=== PATIENT | female | born 1975 | race Caucasian/White ===

== ENCOUNTER 2024-09-24 00:06 | Emergency (ER) | payer OTHER ==
[~2024-09-24] VITALS: Ht 167.6 cm; Wt 89.0 kg
[2024-09-24 00:38] LABS: BASOPHILS % 0.4 % (0.0-2.0); DIFFERENTIAL COMMENT 0; EOSINOPHILS % 0.2 % (0.0-5.0); HEMOGLOBIN. 9.6 g/dL (12.0-16.0); LYMPHOCYTES % 9.7 % (20.0-50.0); MEAN CORPUSCULAR HEMOGLOBIN 22.3 pg (28.0-32.0); MEAN CORPUSCULAR HGB CONC 31.1 g/dL (31.0-37.0); MEAN CORPUSCULAR VOLUME 71.6 fL (81.0-99.0); MEAN PLATELET VOLUME 8.1 fl (7.4-10.4); MONOCYTES % 8.7 % (2.0-8.0); PLATELET 329 x1000/uL (130-400); RED BLOOD CELL COUNT 4.32 mill/uL (4.2-5.4); RED CELL DISTRIBUTION WIDTH 20.9 % (11.6-14.6); WHITE BLOOD COUNT 7.5 x1000/uL (4.5-11.0)
[2024-09-24 00:43] LABS: CHLORIDE 101 mEq/L (98-107); POTASSIUM 4.1 mEq/L (3.5-5.1); SODIUM 135 mEq/L (136-145)
[2024-09-24 00:44] LABS: CALCIUM 9.3 mg/dL (8.7-10.4); CARBON DIOXIDE 26 mEq/L (21-32)
[2024-09-24 00:49] LABS: CREATININE 0.8 mg/dL (0.6-1.0); GLUCOSE 131 mg/dL (70-105); UREA NITROGEN BLOOD 12 mg/dL (9-23)
[2024-09-24 01:06] VITALS: O2SAT 99
[2024-09-24 01:12] LABS: ALANINE AMINOTRANSFERASE 16 IU/L (10-49); ALBUMIN 4.7 g/dL (3.2-4.8); ASPARTATE AMINOTRANSFERASE 21 IU/L (<34)
[2024-09-24 01:13] LABS: BILIRUBIN TOTAL 0.3 mg/dL (0.1-1.0); PROTEIN TOTAL 7.2 g/dL (6.0-8.3)
[2024-09-24 01:36] LABS: BILIRUBIN DIRECT < 0.1 mg/dL (<=3.0)
[2024-09-24] MEDS: KETOROLAC 15MG/ML VIAL IM ONE (03:45)
[2024-09-24] MEDS ORDERED: LEVO750T68 MT (04:27)
[2024-09-24] MEDS ORDERED: METR-167 MT (04:27)
[2024-09-24 05:10] VITALS: TEMP 36.72516; O2SAT 99
[2024-09-24 05:45] VITALS: BP 119/70; PULSE 108; RESP 18
[2024-09-24] MEDS: KETOROLAC 15MG/ML VIAL IM NR (05:45)
== END 2024-09-24 05:51 | disposition home or self-care (01) ==
LOC: ER 00:31
DX: K57.92 Diverticulitis of intestine, part unspecified, without perforation or abscess without bleeding (principal); Z88.0 Allergy status to penicillin
CPT/HCPCS: 99285; 74176; 80076; 80048; 83690; 85025; 36415; 96372; J1885

== ENCOUNTER 2025-01-21 15:01 | Emergency (ER) | payer OTHER ==
[~2025-01-21] VITALS: Ht 175.3 cm; Wt 89.0 kg
[~2025-01-21 15:01] MED LIST: LEVO750T68 MT; METR-167 MT
[2025-01-21] MEDS: FAMOTIDINE 20MG/2ML VIAL IV STA (15:55)
[2025-01-21] MEDS: DEXAMETHASONE 10 MG/ML VIAL IV STA (15:55)
[2025-01-21] MEDS: DIPHENHYDRAMINE 50MG/ML VIAL IV STA (15:55)
[2025-01-21 16:08] VITALS: PULSE 110; RESP 20; O2SAT 98
[2025-01-21] MEDS: IPRATROPIUM/ALBUTEROL 0.5-3(2.5)MG/3ML NEB HHN ONE (16:08)
[2025-01-21] MEDS ORDERED: FAMO40TA70 MT (16:51)
[2025-01-21] MEDS ORDERED: DIPH25CA83 MT (16:51)
[2025-01-21 16:54] VITALS: BP 129/67; PULSE 111; RESP 20; TEMP 36.7; O2SAT 98
== END 2025-01-21 17:11 | disposition home or self-care (01) ==
LOC: ER 15:01
DX: T78.40XA Allergy, unspecified, initial encounter (principal); Z79.52 Long term (current) use of systemic steroids; Z79.899 Other long term (current) drug therapy; Z88.0 Allergy status to penicillin; X58.XXXA Exposure to other specified factors, initial encounter
CPT/HCPCS: 94640; 96374; 96375; 99284; J1100; J1200; J3490; Z7610 ×3; 94070; J1308